=== PATIENT | female | born 1965 | race Caucasian/White ===

== ENCOUNTER → 2016-05-09 15:21 | Emergency (ER) | payer OTHER, MEDICARE ==
--- NOTE | ~2016-05-09 | CR211 ---
[facility] A Service of [facility] & [facility] RADIOLOGY TEXT RESULTS PATIENT: LES SANDERSON LOCATION: [facility] : [id number] UNIT #: [id number] AGE: [address]: Ragini Morales SEX: F ORDER DR: [id number] [facility] [address] [place], [place] [address] [id number] E MR#: [id number] Acc #: [id number] NAME: LES SANDERSON : 1965 SEX: F STUDY DATE/TIME: 05/09/2016 14:25 UNIT: [facility] ROOM: STUDY DESCRIPTION: CR Ribs Uni 2 View W PA Ch Rt Attending Physician: Ragini Morales P.A.-C. Ordering Physician: Ragini Morales P.A.-C. Primary Care Physician: No Primary Care Physician MEDICAL IMAGING REPORT This report is preliminary unless electronic signature is present EXAM Frontal chest and 3 views of the right ribs 05/09/2016 INDICATION Posterior rib pain on the right for 10 days. No known injury. TECHNIQUE Frontal chest and 3 views of the right ribs compared to 08/05/2015. FINDINGS Cardiac silhouette is within normal limits for technique. The vascularity is unremarkable and the lungs are clear. No effusion or pneumothorax. No distinct rib fracture. IMPRESSION 1. Low-volume image, otherwise, negative frontal chest. No pneumothorax. 2. No distinct rib fracture. Dictated by... Ivan Baum M.D. THIS IS AN ELECTRONICALLY VERIFIED REPORT Ivan Baum M.D. at 05/09/2016 5:20 PM KESHIA/vonnie TD: 05/09/2016 16:02 JOB #: [id number] MEDICAL IMAGING REPORT Page 1 of 1 COPY
== END | disposition home or self-care (01) ==
LOC: CFTX 15:21
DX: M54.5 Low back pain (principal); M54.6 Pain in thoracic spine; I10 Essential (primary) hypertension; I25.2 Old myocardial infarction; Z86.718 Personal history of other venous thrombosis and embolism; Z88.6 Allergy status to analgesic agent; Z88.1 Allergy status to other antibiotic agents
CPT/HCPCS: 71101; 96372; 99283; J1885

== ENCOUNTER 2016-07-29 05:18 | Emergency (ER) | payer MEDICARE, OTHER | END 2016-07-29 06:30 | disposition home or self-care (01) | LOC: CED 05:18 | DX: K08.89 Other specified disorders of teeth and supporting structures (principal); Z88.6 Allergy status to analgesic agent; Z88.8 Allergy status to other drugs, medicaments and biological substances | CPT/HCPCS: 99282 ==